=== PATIENT | male | born 1975 | race Caucasian/White ===

== ENCOUNTER 2017-03-20 11:19 | Emergency (ER) | payer MEDICARE, OTHER ==
[~2017-03-20] VITALS: Ht 182.9 cm; Wt 113.4 kg
[~2017-03-20 11:19] MED LIST: Cipro500 MG PO; Flagyl500 MG PO; HYOS.125 SL; Norco 10-325 T1 EACH PO; Norco 5-325 Ta1 EACH PO; Percocet 5-3251 EACH PO; Zofran Odt4 MG SL
[2017-03-20] MEDS ORDERED: CYCL10 PO (11:53)
== END 2017-03-20 12:13 | disposition home or self-care (01) ==
LOC: ER 11:19
DX: M25.511 Pain in right shoulder (principal); F17.200 Nicotine dependence, unspecified, uncomplicated
CPT/HCPCS: 96372; 99283; J1885

== ENCOUNTER 2018-04-20 00:16 | Emergency (ER) | payer MEDICARE, OTHER ==
[~2018-04-20] VITALS: Ht 182.9 cm; Wt 122.5 kg
[~2018-04-20 00:16] MED LIST changes: +CYCL10 PO
[2018-04-20] MEDS ORDERED: CEPH500 PO (00:38)
== END 2018-04-20 00:49 | disposition home or self-care (01) ==
LOC: ER 00:16
DX: L03.314 Cellulitis of groin (principal); F17.200 Nicotine dependence, unspecified, uncomplicated
CPT/HCPCS: 99283

== ENCOUNTER 2018-11-13 20:37 | Emergency (ER) | payer MEDICARE, OTHER ==
[~2018-11-13] VITALS: Ht 182.9 cm; Wt 122.5 kg
[~2018-11-13 20:37] MED LIST changes: +CEPH500 PO
[2018-11-13 21:18] LABS: BASOPHILS ABSOLUTE AUTO 0.08 K/mm3 (0.00-0.23); BASOPHILS PERCENT AUTO 1 % (0-2); EOSINOPHILS ABSOLUTE AUTO 0.27 K/mm3 (0.00-0.68); EOSINOPHILS PERCENT AUTO 3 % (0-6); Hematocrit 45.8 % (37.0-53.0); Hemoglobin 15.3 g/dL (13.5-17.5); IMMATURE GRAN ABSOLUTE AUTO 0.02 K/mm3 (0.00-0.10); IMMATURE GRAN PERCENT AUTO 0 % (0-1); LYMPHOCYTES ABSOLUTE AUTO 2.84 K/mm3 (0.84-5.20); LYMPHOCYTES PERCENT AUTO 26 % (21-46); MONOCYTES ABSOLUTE AUTO 0.72 K/mm3 (0.16-1.47); MONOCYTES PERCENT AUTO 7 % (4-13); Mean Corpuscular HGB 29.9 pg (26.0-34.0); Mean Corpuscular HGB Conc 33.4 g/dL (31.5-36.5); Mean Corpuscular Volume 90 fL (80-100); Mean Platelet Volume 10.5 fL (9.1-12.4); NEUTROPHILS ABSOLUTE AUTO 7.03 K/mm3 (1.96-9.15); NEUTROPHILS PERCENT AUTO 64 % (41-73); Platelet Count 276 K/mm3 (150-400); RDW Coefficient Variation 13.5 % (11.7-14.2); RDW Standard Deviation 44.5 fL (35.1-46.3); Red Blood Cell Count 5.11 M/mm3 (4.30-5.90); White Blood Cell Count 10.96 K/mm3 (4.00-11.30)
[2018-11-13 21:38] LABS: Alanine Aminotransfer (ALT/SGP 40 U/L (12-78); Albumin, Blood 3.8 g/dL (3.4-5.0); Alk Phos 123 U/L (50-136); Anion Gap 8 mmol/L (6-16); Aspartate Aminotrans (AST/SGOT 27 U/L (12-37); Bilirubin, Total 0.1 mg/dL (0.1-1.0); Blood Urea Nitrogen 17 mg/dL (8-24); Bun/Creatinine Ratio 20.9 (12.0-20.0); CO2, Blood 26 mmol/L (21-32); Calcium, Blood 9.3 mg/dL (8.5-10.1); Chloride, Blood 112 mmol/L (98-108); Creatinine, Blood 0.81 mg/dL (0.60-1.20); Globulin, Blood 3.8 g/dL (2.2-4.0); Glomerular Filtration Rate >60 (60-); Glucose, Blood 101 mg/dL (70-99); Sodium, Blood 146 mmol/L (136-145); Total Protein, Blood 7.6 g/dL (6.4-8.2)
[2018-11-13] MEDS ORDERED: HYOS.125 PO (22:38)
[2018-11-13] MEDS ORDERED: Naprosyn500 MG PO (22:38)
[2018-11-14 00:08] LABS: Source, Urine Clean Catch
[2018-11-14 00:10] LABS: Bilirubin, Urine Neg (Neg); Blood, Urine Neg (Neg); Glucose Qualitative, Urine Neg (Neg); Ketones, Urine Neg (Neg); Leukocyte Esterase, Urine Neg (Neg); Nitrite, Urine Neg (Neg); Protein, Urine Neg (Neg); Specific Gravity, Urine 1.025 (1.003-1.022); Urobilinogen, Urine NORM (Normal)
[2018-11-14 00:15] LABS: Appearance, Urine Clear (Clear); Color, Urine Yellow (P-Yellow)
== END 2018-11-14 00:33 | disposition home or self-care (01) ==
LOC: ER 20:37
PROVIDERS: Physician Assistant
DX: R10.32 Left lower quadrant pain (principal); F17.210 Nicotine dependence, cigarettes, uncomplicated
CPT/HCPCS: 36415; 74176; 80053; 81003; 85025; 96361; 96374; 96375; 99284-25; J1170; J1885; J7030

== ENCOUNTER 2019-11-25 19:12 | Emergency (ER) | payer MEDICARE, OTHER ==
[~2019-11-25] VITALS: Ht 182.9 cm; Wt 113.4 kg
[~2019-11-25 19:12] MED LIST changes: +HYOS.125 PO; +Naprosyn500 MG PO
[2019-11-25] MEDS ORDERED: LISINOPRIL-HCT1 EAC1 PO (19:33)
[2019-11-25] MEDS ORDERED: Bactrim Ds Tab1 EACH PO (19:44)
[2019-11-25] MEDS ORDERED: Keflex500 MG PO (19:44)
== END 2019-11-25 19:49 | disposition home or self-care (01) ==
LOC: ER 19:12
DX: K13.0 Diseases of lips (principal); I10 Essential (primary) hypertension; F17.210 Nicotine dependence, cigarettes, uncomplicated
CPT/HCPCS: 99283; A9270-GY

== ENCOUNTER → 2020-10-28 | Outpatient (CLI) | payer MEDICARE, OTHER ==
[~2020-10-28] MED LIST changes: +Bactrim Ds Tab1 EACH PO; +Keflex500 MG PO; +LISINOPRIL-HCT1 EAC1 PO
[2020-10-28 12:38] LABS: BASOPHILS ABSOLUTE AUTO 0.07 K/mm3 (0.00-0.23); BASOPHILS PERCENT AUTO 1 % (0-2); EOSINOPHILS ABSOLUTE AUTO 0.16 K/mm3 (0.00-0.68); EOSINOPHILS PERCENT AUTO 2 % (0-6); Hematocrit 43.7 % (37.0-53.0); Hemoglobin 14.9 g/dL (13.5-17.5); IMMATURE GRAN ABSOLUTE AUTO 0.01 K/mm3 (0.00-0.10); IMMATURE GRAN PERCENT AUTO 0 % (0-1); LYMPHOCYTES ABSOLUTE AUTO 1.78 K/mm3 (0.84-5.20); LYMPHOCYTES PERCENT AUTO 25 % (21-46); MONOCYTES ABSOLUTE AUTO 0.45 K/mm3 (0.16-1.47); MONOCYTES PERCENT AUTO 6 % (4-13); Mean Corpuscular HGB 28.9 pg (26.0-34.0); Mean Corpuscular HGB Conc 34.1 g/dL (31.5-36.5); Mean Corpuscular Volume 85 fL (80-100); Mean Platelet Volume 10.1 fL (9.1-12.4); NEUTROPHILS ABSOLUTE AUTO 4.73 K/mm3 (1.96-9.15); NEUTROPHILS PERCENT AUTO 66 % (41-73); Platelet Count 291 K/mm3 (150-400); RDW Coefficient Variation 13.4 % (11.7-14.2); RDW Standard Deviation 41.3 fL (35.1-46.3); Red Blood Cell Count 5.15 M/mm3 (4.30-5.90)
[2020-10-28 13:03] LABS: Anion Gap 9 mmol/L (6-16); Blood Urea Nitrogen 20 mg/dL (8-24); CO2, Blood 27 mmol/L (21-32); Calcium, Blood 9.2 mg/dL (8.5-10.1); Chloride, Blood 103 mmol/L (98-108); Glomerular Filtration Rate >60 (60-); Glucose, Blood 92 mg/dL (70-99); Potassium, Blood 4.2 mmol/L (3.5-5.5); Sodium, Blood 139 mmol/L (136-145); Thyroid Stimulating Hormone 1.465 uIU/mL (0.360-4.800)
== END | disposition home or self-care (01) ==
LOC: LAB SHORT 12:32 → LAB 12:32
PROVIDERS: Physician Assistant Surgical
DX: R53.83 Other fatigue (principal)
CPT/HCPCS: 80048; 84443; 85025

== ENCOUNTER → 2020-11-21 | Outpatient (CLI) | payer MEDICARE, OTHER ==
[2020-11-23 15:35] LABS: CORONAVIRUS (COVID19) CSH-NRL Negative (Negative)
== END | disposition home or self-care (01) ==
LOC: LAB SHORT 11:38
PROVIDERS: Physician Assistant Medical
DX: Z20.822 Contact with and (suspected) exposure to COVID-19 (principal)
CPT/HCPCS: U0003